=== PATIENT | female | born 1960 | race Caucasian/White ===

== ENCOUNTER 2019-01-27 11:17 | Emergency (ER) | payer MEDICAID ==
[~2019-01-27] VITALS: Ht 167.6 cm; Wt 75.0 kg
[2019-01-27] MEDS ORDERED: GABAPENTIN800 MG PO (11:30)
[2019-01-27] MEDS ORDERED: ABILIFY10 MG PO (11:31)
[2019-01-27] MEDS ORDERED: VENLAFAXINE225 MG PO (11:31)
[2019-01-27] MEDS ORDERED: CLONAZEPAM2 MG PO (11:32)
[2019-01-27] MEDS ORDERED: TIZANIDINE HCL4 MG PO (11:32)
[2019-01-27] MEDS ORDERED: OMEPRAZOLE20 MG PO (11:33)
[2019-01-27] MEDS ORDERED: PROVENTIL108 MCG/AC IN (12:31)
[2019-01-27] MEDS ORDERED: ZITHROMAX250 MG PO (12:31)
[2019-01-27] MEDS ORDERED: TESSALON PERLE100 MG PO (12:31)
[2019-01-27] MEDS ORDERED: MEDDOSEPAK PO (12:31)
[2019-01-27 12:50] VITALS: BP 166/94
== END 2019-01-27 12:55 | disposition home or self-care (01) ==
LOC: ED 11:17
DX: J45.901 Unspecified asthma with (acute) exacerbation (principal)